=== PATIENT | female | born 1995 | race African-American/Black ===

== ENCOUNTER 2017-06-15 22:10 | Emergency (ER) | payer OTHER ==
[~2017-06-15] VITALS: Ht 152.4 cm; Wt 56.1 kg
[2017-06-15 22:10] VITALS: BP 112/68
== END 2017-06-15 23:25 | disposition left against medical advice (07) ==
LOC: M ED 22:10
DX: Z53.29 Procedure and treatment not carried out because of patient's decision for other reasons (principal)

== ENCOUNTER 2017-07-20 07:13 | Emergency (ER) | payer OTHER ==
[~2017-07-20] VITALS: Ht 152.4 cm; Wt 59.1 kg
[2017-07-20 08:05] LABS: BASO % 0.6 % (0.0-1.0); EOS # 0.1 K/mm3 (0.0-0.50); EOS % 1.2 % (0.0-3.0); LARGE UNSTAINED CELL # 0.2 K/mm3 (0.0-0.4); LARGE UNSTAINED CELL % 3.6 % (0.0-4.0); LYMPH # 1.8 K/mm3 (1.5-6.5); LYMPH % 33.8 % (24.0-44.0); MEAN CORPUSCULAR HEMOGLOBIN 29.8 pg (27.0-33.0); MEAN CORPUSCULAR HGB CONC 33.9 g/dl (32.0-36.5); MEAN CORPUSCULAR VOLUME 87.9 fl (80.0-96.0); MONO # 0.3 K/mm3 (0.0-0.8); MONO % 6.6 % (0.0-5.0); NEUTROPHILS # 2.6 K/mm3 (1.8-7.7); NEUTROPHILS % 54.3 % (36.0-66.0); PLATELET COUNT, AUTOMATED 217 k/mm3 (150-450); RED CELL DISTRIBUTION WIDTH 12.2 % (11.5-14.5); WHITE BLOOD COUNT 4.8 K/mm3 (4.0-10.0)
[2017-07-20 08:27] LABS: CONTROL LINE HCG INT CTR LINE PRESENT
[2017-07-20 08:33] LABS: ANION GAP 10 MEQ/L (8-16); BLOOD UREA NITROGEN 9 MG/DL (7-18); CALCIUM LEVEL 9.1 MG/DL (8.5-10.1); CARBON DIOXIDE LEVEL 24 MEQ/L (21-32); CHLORIDE LEVEL 107 MEQ/L (98-107); CREATININE FOR GFR 0.75 MG/DL (0.55-1.02); GLUCOSE, FASTING 88 MG/DL (70-105); POTASSIUM SERUM 3.7 MEQ/L (3.5-5.1); SODIUM LEVEL 141 MEQ/L (136-145)
[2017-07-20] MEDS ORDERED: levETIRAcetam 250MG TABLET (KEPPRA) PO ONE (13:15)
[2017-07-20] MEDS ORDERED: VITMTA PO (14:07)
[2017-07-20] MEDS ORDERED: [UNRECOGNIZED DRUG - OTHER] PO (14:07)
[2017-07-20 15:57] VITALS: BP 108/64
--- NOTE | 2017-07-21 13:13 | REP ---
MRI brain without and with IV contrast: History: Possible seizure. Mild headache. Mass lesion left temporal lobe on today's CT study. This was heavily calcified. Technique: Axial, coronal and sagittal imaging planes are utilized. T1 and T2-weighted sequences include spin-echo, fast spin echo, FLAIR, and diffusion weighted sequences. The gadolinium enhancement dose is 11 mL of intravenous ProHance. MRI findings: No bony calvarial defect or lesion is seen. Temporal bone anatomy is normal. There is no MR evidence of significant paranasal sinus disease. No intraorbital abnormality is seen. Diffusion weighted scans show no evidence of restricted diffusion in the known temporal lobe lesion on the left or elsewhere. T2-weighted scans confirm the presence of a oval shaped mass lesion in the inferomedial temporal lobe. This measures 3.4 cm medial to lateral by 2.1 cm anterior to posterior by 1.8 cm cranial to caudal. On T2-weighted scans it shows heterogeneous peripheral T2 signal intensity and central isointensity. On FLAIR images it is heterogeneously T2 hyperintense. On T1-weighted precontrast images it is heterogeneous but essentially isointense. Postcontrast images show mild contrast enhancement. The lesion indents itself into the left lateral aspect of the suprasellar cistern. The lesion appears to have its epicenter in the hippocampus. No other intra-axial brain lesion is seen. There are some scattered T2 hyperintensities in the subcortical and periventricular white matter of the left frontal lobe on FLAIR images. No other abnormality. No other abnormal contrast enhancement. Impression: Faintly enhancing mass lesion in the left hippocampus without significant mass effect. This corresponds to the CT finding of a calcified mass. Its MR dimensions are 3.4 x 2.1 x 1.8 cm. 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 Recommend neurosurgical evaluation. Signed by Obdulio Suarez MD 07/21/2017 03:02 P
--- NOTE | 2017-07-21 14:41 | REP ---
HEAD CT WITHOUT CONTRAST: HISTORY: Seizure. Headache. No comparison study. FINDINGS: Bone window settings demonstrate an intact bony calvarium. Visualized paranasal sinuses are clear. No intraorbital abnormality is appreciated. On soft tissue window settings, lateral, third, and fourth ventricles are normal in size and position. There is a fairly large ill-defined 2.53 cm densely calcified lesion in the left medial temporal lobe. There is no visible adjacent edema. No discernible mass effect. Hounsfield units within this lesion are in the range of 340 HU which is far too dense for hemorrhage. There is no evidence of intracranial hemorrhage. Josue-white differentiation is otherwise intact. No infarct, extra-axial fluid collection or midline shift is seen. IMPRESSION: 2.3 x 1.1 cm densely calcified mass lesion in the inferomedial temporal lobe on the left. Possibilities include a calcified meningioma and oligodendroglioma. Recommend MRI scanning of the brain without and with IV gadolinium. Signed by Obdulio Suarez MD 07/21/2017 03:07 P
== END 2017-07-20 16:01 | disposition short-term general hospital (02) ==
LOC: M ED 07:13 → EDBD 07:13 → M ED 16:01
DX: R56.9 Unspecified convulsions (principal); G93.89 Other specified disorders of brain; Z88.2 Allergy status to sulfonamides
CPT/HCPCS: 70450; 70553; 80048; 83605; 84703; 85025; 99285; A9576

== ENCOUNTER → 2017-08-21 | Outpatient (CLI) | payer OTHER ==
[~2017-08-21] MED LIST: VITMTA PO; [UNRECOGNIZED DRUG - OTHER] PO
--- NOTE | 2017-08-26 10:39 | RADONC ---
RADIATION ONCOLOGY CONSULTATION NOTE DATE: 08/21/2017 CHART NUMBER: [id number]. DIAGNOSIS: Brain tumor. ECOG PERFORMANCE STATUS: Zero. CONSULTATION NOTE: Ms. De La Cruz is a very pleasant, 22-year-old black female with the diagnosis of what appears to be a left temporal mass who is presenting to me today for initial discussion and consultation. HISTORY OF PRESENT ILLNESS: The patient was in her usual state of health until a month or so ago when she developed a tonic clonic seizure. She had no previous seizure history. The seizure lasted 1 minute. She was taken to the emergency room and a CT the brain was done on 07/20/2017, which showed a 2.3 cm x 1.1 cm calcified mass in the inferior medial inferomedial temporal lobe on the left. It was thought to possibly be a meningioma or an oligodendroglioma. An MRI of the brain was done the same day and confirmed a 3.4 cm x 2.1 cm x 1.8 cm mass most compatible with a low grade glioma, perhaps an oligodendroglioma. The patient was transferred to [facility] where she was seen by the neurosurgical neurology teams. 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 The tumor however was negative for chromosome 1P/19q deletion. There was no IEH1 gene mutation at codon 132. There was no IVH2 gene mutation at codon 140 or codon 172. Both of these results were negative. The case was reviewed by Dr. Nura Pacheco and Dr. Moises Alfonso. These findings were not consistent with an oligodendroglioma. CD34 and synaptophysin were positive. 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 The molecular findings however, were not supportive of an oligodendroglioma. The differential included but was not limited to a neurocytoma (given synaptophysin staining), ganglioglioma (given CD34 staining), but diffuse but astrocytoma IDH wild type and pilocystic astrocytoma were also possible. The case was sent to be reviewed by Dr. Hans Schafer at [facility]. We do not have the final results yet. The patient was called by Dr. Rubalcava and told of the lack of the diagnosis at this point. She was told she may or may not need radiation and originally said she could cancel this consultation at this time. The patient did come in however and wanted to be seen just to discuss what radiation would be like if she needed it. PAST MEDICAL HISTORY: The patient's past medical history is noncontributory. She has been in excellent health. ALLERGIES: The patient is allergic to BACTRIM. SOCIAL HISTORY: The patient does not smoke cigarettes nor abuse alcohol. FAMILY HISTORY: The patient's family history is positive for a great-grandmother with colon and breast cancer. She had aunts with breast cancer and an uncle with lung cancer. REVIEW OF SYSTEMS: The patient's review of systems is noncontributory. Denies nausea, vomiting, fevers, chills, night sweats, diplopia, headaches, anxiety or depression, anorexia, weight loss, visual disturbances, chest pain, urinary or bowel difficulties, bone pain, or neurological problems. PHYSICAL EXAMINATION: The patient is a well-developed, well-nourished, 22-year-old black female in no acute distress. HEENT exam is normocephalic, atraumatic. Extraocular movements are intact. There is no palpable cervical, supraclavicular, infraclavicular, axillary, or inguinal lymphadenopathy present. Lungs are clear to auscultation and percussion. Heart has a regular rate and rhythm. Abdomen is benign with no hepatosplenomegaly, masses, or tenderness. Breast examination reveals no masses or discharge bilaterally. Skeletal examination reveals no tenderness to pressure or percussion of the bony skeleton. Extremities reveal no clubbing, cyanosis, or edema. Neurologic exam is grossly intact, as is the remainder of the physical examination. ASSESSMENT: At the present time, we are awaiting the diagnosis. The patient is awaiting to hear from Dr. Rubalcava. I am not making any recommendations at this point pending a final diagnosis. We will continue to follow closely and I will be speaking with Dr. Rubalcava to discuss the overall results. Thank you for allowing us to participate in the care of this very pleasant woman. If I could be of any assistance in the meantime, please feel free to contact me anytime, As always, warm regards. cc: [facility] Fito Rubalcava MD
--- NOTE | 2017-08-29 07:45 | RADONC ---
RADIATION ONCOLOGY PROGRESS NOTE: DATE: 08/28/2017 CHART NUMBER: [id number] Mast' s office personally to see whether or not the pathology results are back from [facility]. I was told that they have not yet received any word from [facility] with regards to her diagnosis. They have guaranteed me that they will be sending us a copy as soon as it is available and further recommendations will be made at that point. We will continue to closely follow this issue so that radiation can be initiated if indicated as soon as possible. I look for to be with Dr. Mast personally once we obtain the actual results for further coordinate care.
--- NOTE | 2017-09-12 11:10 | RADONC ---
RADIATION ONCOLOGY PROGRESS NOTE: DATE: 09/11/2017 CHART NUMBER: [id number] I called Ms. De La Cruz today to discuss the presentation that was undertaken at our multidisciplinary tumor conference as well as my conversation with Dr. Rubalcava. I explained to the patient that I have personally not seen anyone with this diagnosis in the past. It appears to be a very low grade tumor and it appears that may be reasonable to follow this with serial MRIs. Dr. Rubalcava I are in agreement with this but neither of us has a great deal of experience with this type of lesion. I have highly recommended that she seek a second opinion at a large cancer center such as [facility] in [place]. I look forward to their expert opinion in this case. The patient has agreed to be seen down in [place] and is aware that they would have more experience with this disease that we would have. I am therefore setting her up for consultation in [place].
== END ==
LOC: M ONCR 08-14 14:43
PROVIDERS: ATTEND Radiology Radiation Oncology
DX: C71.9 Malignant neoplasm of brain, unspecified (principal)

== ENCOUNTER 2018-09-12 00:56 | Emergency (ER) | payer OTHER | END 2018-09-12 02:09 | disposition home or self-care (01) | LOC: M ED 00:56 | DX: Z51.89 Encounter for other specified aftercare (principal) | CPT/HCPCS: 99282 ==

== ENCOUNTER 2018-09-22 08:56 | Outpatient (RCR) | payer OTHER | END 2018-09-30 | LOC: M OT 08:56 | DX: D43.2 Neoplasm of uncertain behavior of brain, unspecified (principal) | CPT/HCPCS: 97165 ==

== ENCOUNTER 2018-11-06 14:11 | Emergency (ER) | payer OTHER ==
[2018-11-06] MEDS: diphenhydrAMINE INJ 50MG/ML VIAL (J1200) IV (15:20)
[2018-11-06] MEDS: NS 1,000 ML IV (15:20)
[2018-11-06] MEDS: KETOROLAC 30 MG/ML VIAL (J1885) IV (15:35)
[2018-11-06] MEDS: METOCLOPRAMIDE INJ 10MG/2ML VIAL (J2765) IV (15:36)
== END 2018-11-06 16:45 | disposition home or self-care (01) ==
LOC: M ED 14:11
DX: G43.909 Migraine, unspecified, not intractable, without status migrainosus (principal)
CPT/HCPCS: J1200

== ENCOUNTER 2018-11-10 19:07 | Emergency (ER) | payer OTHER ==
[2018-11-14] MEDS ORDERED: METAL LOCK LOOP XX (13:29)
== END 2018-11-10 19:44 | disposition home or self-care (01) ==
LOC: M ED 19:07
DX: A74.9 Chlamydial infection, unspecified (principal)
CPT/HCPCS: 99281

== ENCOUNTER 2019-05-08 22:29 | Emergency (ER) | payer OTHER ==
[~2019-05-08] VITALS: Ht 152.4 cm; Wt 51.8 kg
[~2019-05-08 22:29] MED LIST changes: +KEPP1TAB2 PO; +TRAZ-252 PO; +VITA50TA43 PO
[2019-05-08] MEDS ORDERED: GI COCKTAIL 50ML BTL(HYOSCYAMINE/MAALOX/LIDOCAINE VISCOUS)(1:3:1) PO ONE (23:00)
[2019-05-08] MEDS ORDERED: SUCRALFATE SUSP 1GM/10ML UD PO ONE (23:00)
[2019-05-08 23:51] LABS: BASO % 0.4 % (0.0-1.0); EOS % 0.2 % (0.0-3.0); HEMATOCRIT 40.7 % (36.0-47.0); HEMOGLOBIN 13.8 g/dl (12.0-15.5); LYMPH # 1.9 10^3/uL (1.5-6.5); LYMPH % 39.8 % (24.0-44.0); MEAN CORPUSCULAR HEMOGLOBIN 29.6 pg (27.0-33.0); MEAN CORPUSCULAR HGB CONC 33.9 g/dl (32.0-36.5); MEAN CORPUSCULAR VOLUME 87.3 fl (80.0-96.0); MONO # 0.2 10^3/uL (0.0-0.8); MONO % 4.8 % (0.0-5.0); NEUTROPHILS # 2.6 10^3/uL (1.8-7.7); NEUTROPHILS % 54.6 % (36.0-66.0); PLATELET COUNT, AUTOMATED 245 10^3/uL (150-450); RED BLOOD COUNT 4.66 10^6/uL (4.00-5.40); WHITE BLOOD COUNT 4.8 10^3/uL (4.0-10.0)
[2019-05-09 00:06] LABS: HCG, SERUM QUALITATIVE NEGATIVE (NEGATIVE)
[2019-05-09 00:31] LABS: ALBUMIN 4.2 GM/DL (3.2-5.2); ALT/SGPT 25 U/L (12-78); BILIRUBIN,DIRECT 0.2 MG/DL (0.0-0.2); BILIRUBIN,TOTAL 0.4 MG/DL (0.2-1.0); BLOOD UREA NITROGEN 5 MG/DL (7-18); CALCIUM LEVEL 9.1 MG/DL (8.5-10.1); CARBON DIOXIDE LEVEL 20 MEQ/L (21-32); CHLORIDE LEVEL 109 MEQ/L (98-107); CREATININE FOR GFR 0.71 MG/DL (0.55-1.30); GLOMERULAR FILTRATION RATE > 60.0 (>60); GLUCOSE, FASTING 69 MG/DL (70-100); LIPASE 85 U/L (73-393); POTASSIUM SERUM 4.1 MEQ/L (3.5-5.1); SODIUM LEVEL 141 MEQ/L (136-145); TOTAL PROTEIN 8.1 GM/DL (6.4-8.2)
[2019-05-09 00:49] LABS: APPEARANCE, URINE CLEAR (CLEAR); BACTERIA, URINE AUTO NEGATIVE (NEGATIVE); BILIRUBIN, URINE AUTO NEGATIVE (NEGATIVE); BLOOD, URINE BLOOD NEGATIVE (NEGATIVE); COLOR, URINE YELLOW (YELLOW); GLUCOSE, URINE (UA) AUTO NEGATIVE (NEGATIVE); KETONE, URINE AUTO 2+ mg/dL (NEGATIVE); LEUKOCYTE ESTERASE, URINE AUTO NEGATIVE (NEGATIVE); MUCUS, URINE SMALL (NEGATIVE); NITRITE, URINE AUTO NEGATIVE (NEGATIVE); PROTEIN, URINE AUTO NEGATIVE (NEGATIVE); RBC, URINE AUTO 0 /HPF (0-3); SPECIFIC GRAVITY URINE AUTO 1.019 (1.002-1.035); SQUAMOUS EPITHELIAL CELL UR AU 1 /HPF (0-6); UROBILINOGEN, URINE AUTO 0.2 mg/dL (0.0-2.0); WBC, URINE AUTO 0 /HPF (0-3)
[2019-05-09] MEDS ORDERED: SUCR1SS PO (00:54)
[2019-05-09 01:06] VITALS: BP 124/80
== END 2019-05-09 01:15 | disposition home or self-care (01) ==
LOC: M ED 22:29
DX: K29.70 Gastritis, unspecified, without bleeding (principal); K29.80 Duodenitis without bleeding; Z88.2 Allergy status to sulfonamides; Z85.841 Personal history of malignant neoplasm of brain; Z79.899 Other long term (current) drug therapy

== ENCOUNTER 2019-07-05 18:26 | Emergency (ER) | payer OTHER ==
[~2019-07-05] VITALS: Ht 152.4 cm; Wt 50.9 kg
[~2019-07-05 18:26] MED LIST changes: +SUCR1SS PO
[2019-07-05 18:27] VITALS: BP 121/65
== END 2019-07-05 19:26 | disposition left against medical advice (07) ==
LOC: M ED 18:26
DX: N89.8 Other specified noninflammatory disorders of vagina (principal); Z53.21 Procedure and treatment not carried out due to patient leaving prior to being seen by health care provider

== ENCOUNTER → 2020-03-07 | Outpatient (CLI) | payer OTHER ==
--- NOTE | 2020-03-07 17:06 | REP ---
CT brain without contrast: History: Medial temporal mass removal 2 years ago[address] Comparison head CT study November 06, 2018. 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 Axial CT images demonstrate that this is left-sided, in the temporal region. The bony calvarium is otherwise intact. Visualized paranasal sinuses are clear. There is an area of encephalomalacia in the inferior tip of the temporal lobe on the left. There is some adjacent linear calcification. These findings are all unchanged from the November 06, [address] study[address] No evidence of recurrent mass is seen. No extra-axial fluid collection, infarct, hemorrhage, or midline shift is observed. Impression: Postoperative findings on the left. No acute intracranial abnormality. Electronically Signed by Obdulio Suarez MD 03/08/2020 08:57 A
== END ==
LOC: M RAD 14:56
PROVIDERS: ATTEND Physician Assistant Medical
DX: Z86.011 Personal history of benign neoplasm of the brain (principal)

== ENCOUNTER 2020-03-11 00:28 | Emergency (ER) | payer OTHER ==
[~2020-03-11] VITALS: Ht 152.4 cm; Wt 53.2 kg
[2020-03-11 00:28] VITALS: BP 108/70
[2020-03-11] MEDS ORDERED: diphenhydrAMINE 50MG/ML VIAL (J1200) IV STA (00:56)
[2020-03-11] MEDS ORDERED: NS 1,000 ML IV ONE (01:00)
[2020-03-11] MEDS ORDERED: METOCLOPRAMIDE INJ 10MG/2ML VIAL (J2765) IV ONE (01:00)
[2020-03-11] MEDS ORDERED: KETOROLAC 30 MG/ML VIAL (J1885) IV ONE (01:00)
[2020-03-11] MEDS ORDERED: diphenhydrAMINE 50MG CAP PO ONE (01:30)
[2020-03-11] MEDS ORDERED: METOCLOPRAMIDE 10 MG TAB PO ONE (01:30)
[2020-03-11] MEDS ORDERED: KETOROLAC TROMETHAMINE 10 MG TAB PO ONE (01:30)
== END 2020-03-11 02:00 | disposition home or self-care (01) ==
LOC: M ED 00:28
DX: R51 Headache (principal); R11.0 Nausea; R43.9 Unspecified disturbances of smell and taste; R56.9 Unspecified convulsions; Z88.2 Allergy status to sulfonamides

== ENCOUNTER → 2023-02-13 | Outpatient (CLI) | payer OTHER | LOC: M PLARAD 12:49 | PROVIDERS: ATTEND Student in an Organized Health Care Education/Training Program | DX: C71.2 Malignant neoplasm of temporal lobe (principal) ==